=== PATIENT | female | born 1970 | race Caucasian/White ===

== ENCOUNTER → 2019-10-22 | Day surgery (SDC) | payer OTHER ==
[~2019-10-22] VITALS: Ht 160 cm; Wt 84.8 kg
[2019-10-22 08:48] VITALS: BP 118/75
[2019-10-22 17:04] VITALS: BP 140/91
== END | disposition home or self-care (01) ==
LOC: DS 07:59 → MA 09:00 → OR 12:00
DX: C50.411 Malignant neoplasm of upper-outer quadrant of right female breast (principal); Z17.0 Estrogen receptor positive status [ER+]; Z98.890 Other specified postprocedural states; Z92.21 Personal history of antineoplastic chemotherapy
CPT/HCPCS: 88329; 88344; J0690; J1170; J2001; J2405; J2704; J3010; J3490; Q9968